=== PATIENT | male | born 1980 | race Caucasian/White ===

== ENCOUNTER → 2018-06-05 07:06 | Outpatient (CLI) | payer BC, SELFPAY ==
[2018-06-05 08:14] LABS: Add Manual Diff / Slide Review NO; Basophils Percent Auto 0.8 % (0-2); Eosinophils Percent Auto 2.2 % (2-4); Hematocrit 43.9 % (41-53); Lymphocytes Percent Auto 19.7 % (25-40); Mean Corpuscular HGB Conc 34.2 % (30-36); Mean Corpuscular Hemoglobin 30.1 PG (26-34); Monocytes Percent Auto 9.4 % (3-14); Neutrophils Absolute Auto 6000 /uL (3000-5900); Neutrophils Percent Auto 67.9 % (50-75); Platelet Count 393 X10^3/uL (150-400); Red Blood Cell Count 4.99 X10^6/uL (4.5-5.9); Red Cell Distribution Width 13.8 % (11.6-14.8); White Blood Cell Count 8.8 X10^3/uL (4.5-11.0)
[2018-06-05 08:38] LABS: Hemoglobin A1C% w Est Avg Glu 10.8 % (4.0-6.0)
[2018-06-05 08:48] LABS: Blood Urea Nitrogen 14 mg/dL (9-20); Calcium 9.5 mg/dL (8.4-10.2); Carbon Dioxide 32 mmol/L (22-32); Chloride 94 mmol/L (98-107); Cholesterol 153 mg/dL (140-199); Estimated Glomerular Filt Rate > 60.0 mL/min (>60); Glucose 241 mg/dL (70-100); HDL Cholesterol 39 mg/dL (40-60); HEMOLYSIS < 15 (0-50); LDL Cholesterol Calculated 79 mg/dL (<100); Potassium 4.5 mmol/L (3.4-5.1); Sodium 138 mmol/L (137-145); Triglycerides 177 mg/dL (35-150)
[2018-06-05 08:54] LABS: Creatinine Urine Random 103.8 mg/dL; Protein (Total) Urine Random 56 mg/dL (0-12); Protein Creatinine Ratio Urine 0.53 GRAM/24H
== END ==
PROVIDERS: PCP Podiatrist; Visit Provider Neuromusculoskeletal Medicine & OMM
DX: E11.8 Type 2 diabetes mellitus with unspecified complications (principal); Z79.4 Long term (current) use of insulin
CPT/HCPCS: 36415; 80048; 80061; 82570; 83036; 84156; 85025

== ENCOUNTER 2019-02-22 21:47 | Emergency (ER) | payer BC, SELFPAY ==
--- NOTE | 2019-02-22 21:54 | DI.RAD.S_ITS ---
PROCEDURE: XR FOOT LT MIN 3V INDICATIONS: open sore with previous hard handley and diabetes TECHNIQUE: 3 views of the foot were acquired. COMPARISON: None. FINDINGS: Bones: There is extensive disorganization of the hindfoot, midfoot, and forefoot joints, consistent with sequelae of severe Charcot arthropathy. Lateral fixation hardware spans the lateral forefoot, midfoot, and hindfoot. There has been resection of 2 of the lateral fixation screws, one of which is free within the soft tissues. There are several fractured screw fragments within the midfoot. Multifocal ill-defined lucencies throughout the forefoot, midfoot, and hindfoot are present. Soft tissues: No tibiotalar joint effusion. Achilles tendon appears normal. IMPRESSION: 1. Extensive Charcot arthropathy. 2. Fractured and recessed screws, as described above. 3. Extensive lucencies throughout the foot, which could indicate osteomyelitis. 4. Findings discussed with Dr. Del Rosario on 02.23.19 at 0818 hrs. PST. Dictated by: Lex Mendoza M.D. on 02/23/2019 at 7:14 Approved by: Lex Mendoza M.D. on 02/23/2019 at 7:20
[2019-02-22 21:58] VITALS: BP 184/131; PULSE 133; RESP 12; TEMP 37.1; O2SAT 99; BMI 30.4
--- NOTE | 2019-02-22 22:05 | ED_ITS ---
HPI - Skin/Abscess/Foreign Bdy General Chief complaint: Medical Clearance Stated complaint: Open sore Time Seen by Provider: 02/22/19 21:54 Source: patient and police Mode of arrival: ambulatory Limitations: no limitations History of Present Illness HPI narrative: Patient is a 38-year-old insulin-dependent diabetic male presenting with police medical clearance he has open sores on the bottoms his feet. 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 He has had surgery on that foot with a repair he feels like maybe a screw or something is causing the persistent open wound. He denies any fever or chills. He has neuropathy but does have some peeling. He says overall this is been ongoing for some. MD complaint: lesion Onset (ago): month(s) Location: L foot and R foot Related Data Previous Rx's Medication Instructions Recorded levofloxacin [Levaquin] 750 mg PO DAILY #7 tab 02/22/19 Allergies Allergy/AdvReac Type Severity Reaction Status Date / Time No Known Drug Allergies Allergy Verified 02/22/19 23:13 Review of Systems Review of Systems GENERAL: Denies chills, fatigue, malaise, fever, sweats, travel HEENT: Denies sinus pain, ear pain, sore throat, difficulty swallowing, neck pain RESPIRATORY: Denies dyspnea, cough, wheezing, hemoptysis, sputum. CARDIOVASCULAR: Denies chest pain, palpitations, orthopnea, edema GASTROINTESTINAL: Denies nausea, vomiting, abdominal pain, diarrhea, constipation, melena. : Denies dysuria, frequency, incontinence, hematuria, urinary retention, flank pain. MUSCULOSKELETAL: Denies weakness, joint pain, or bony pain SKIN: No rash, no erythema, no pruritus NEUROLOGIC: Denies weakness, dizziness, headache, numbness, change in speech, confusion PSYCHIATRIC: No concerning psychosocial issues. 12 point review of systems is negative except for those stated above and HPI Exam Initial Vital Signs Initial Vital Signs: Vital Signs Temperature 98.7 F 02/22/19 21:58 Pulse Rate 133 H 02/22/19 21:58 Respiratory Rate 12 02/22/19 21:58 Blood Pressure 184/131 H 02/22/19 21:58 Pulse Oximetry 99 02/22/19 21:58 GENERAL: Well-appearing, well-nourished and in no acute distress. HEENT: Head atraumatic,EOMI, pupils reactive, CARDIOVASCULAR: Regular rate and rhythm without murmurs, rubs or gallops. RESPIRATORY: Breath sounds equal bilaterally, no wheezes rales or rhonchi. ABDOMEN: Soft, nontender. Normoactive bowel sounds all 4 quadrants. No guarding or rebound. EXTREMITIES: Right foot partial amputation NEUROLOGICAL: Alert and oriented x4.Normal gait and speech. Cranial nerves II through XII grossly intact. SKIN: Left foot 2 x 2 cm chronic open wound no surrounding erythema no gross discharge. Right foot 2 x 3 cm Course Orders Ordered: ED Orders 02/22/19 21:54 XR foot LT min 3V Stat Discontinued Medications Levofloxacin (Levaquin) 750 mg PO NOW ONE Stop: 02/22/19 23:10 Last Admin: 02/22/19 23:13 Dose: 750 mg Vital Signs - 8 hr 02/22/19 21:58 02/22/19 22:30 02/22/19 22:31 Temperature 98.7 F Pulse Rate 133 H 122 H 121 H Respiratory Rate 12 Blood Pressure 184/131 H Blood Pressure [Right Arm] 201/121 H 166/100 H Pulse Oximetry 99 98 98 02/22/19 22:50 02/22/19 23:00 02/22/19 23:38 Temperature Pulse Rate 117 H 112 H 110 H Respiratory Rate 18 Blood Pressure 151/100 H Blood Pressure [Right Arm] 151/100 H Pulse Oximetry 97 MDM - Skin/Abscess/Foreign Bdy Imaging Data X-ray left foot: Attestation: I personally reviewed and interpreted this imaging study as follows: My impression: Hardware in place, chronic MDM Narrative Medical decision making narrative: patient initially tachycardic but police in room he is handcuffed. Handcuffs are ventrally removed. Heart rate does come down. He overall does not appear septic his wounds seem to be chronic, the right 1 actually seems to be healed the left 1 is slightly open but no gross pus. Possible and likely chronic osteomyelitis. Will put patient on some antibiotics. Overall he appears well eye strong we recommended that he follow up and see wound care. Patient is also noted to be hypertensive. That he does not know that he has elevated blood pressure. Also recommended that he follow- up with his PCP in regards blood pressure. At this time patient can be medically cleared. Discharge Plan Departure Patient Disposition: Home Clinical Impression: Diabetic foot ulcer Qualifiers: Diabetic foot ulcer location: midfoot Diabetes mellitus type: type 1 Laterality: left Non-pressure ulcer stage: with fat layer exposed Qualified Code(s): E10.621 - Type 1 diabetes mellitus with foot ulcer Discharge Date/Time: 02/22/19 23:30 Interventions: ED Discharge Assessment Last Done: 02/22/19 23:38 Instructions: DI for Diabetic Foot Ulcer Activity Restrictions/Additional Instructions: Medically clear *You have been diagnosed with chronic diabetic foot ulcers *What to do: Bone is certainly concerning for possible chronic ongoing infection. This is imperative that he follow up with wound care and possible podiatry as well. *Continue to take medications as directed Levaquin 750 mg once daily for 7 days *Follow up with your primary care provider in 2-3 days *Return to ER if you should have increasing redness, fever, worsening pain or any new, worsening or concerning symptoms Prescriptions: New levofloxacin [Levaquin] 750 mg tablet 750 mg PO DAILY Qty: 7 RF: 0 Referrals: Bon Nava DPM [Primary Care Provider] - Srinivas Candelaria MD [Physician] -
[2019-02-22 22:30] VITALS: BP 201/121; PULSE 122; O2SAT 98
[2019-02-22 22:31] VITALS: BP 166/100; PULSE 121; O2SAT 98
--- NOTE | 2019-02-22 22:47 | PC.NURSE ---
Pt given ice water.
[2019-02-22 22:50] VITALS: PULSE 117
[2019-02-22 23:00] VITALS: BP 151/100; PULSE 112
[2019-02-22] MEDS: levoFLOXacin 250 MG TABLET 750 MG PO (23:13)
--- NOTE | 2019-02-22 23:22 | PC.NURSE ---
Allevan dressings applied to bilateral foot ulcers.
[2019-02-22 23:38] VITALS: BP 151/100; PULSE 110; RESP 18; O2SAT 97
--- NOTE | 2019-02-23 17:18 | PC.NURSE ---
Dr Del Rosario requested pt be reached to relay information regarding DI results. no answer on pt list number, called [place] dispatch to try to locate pt. he was in the er 02/22/19 with [employer]. pt needs to follow up with orthopedics due to hardware issues in foot. it is non emergent.
--- NOTE | 2019-02-23 18:24 | PC.NURSE ---
spoke with [facility] nurse Alyssia. reported its recommended for pt to follow up with orthopedics when he can, to follow up about hardware in foot, its non emergent.
== END 2019-02-22 23:30 | disposition home or self-care (01) ==
PROVIDERS: Emergency Provider Emergency Medicine; Family Provider Internal Medicine; PCP Podiatrist
DX: E10.621 Type 1 diabetes mellitus with foot ulcer (principal); L97.502 Non-pressure chronic ulcer of other part of unspecified foot with fat layer exposed
CPT/HCPCS: 73630; 99283